=== PATIENT | male | born 1990 | race Caucasian/White ===

== ENCOUNTER 2023-10-20 15:02 | Emergency (ER) | payer OTHER ==
[2023-10-20 15:30] VITALS: BP 132/82; PULSE 78; RESP 18; TEMP 98.4; BMI 31.0
[2023-10-20] MEDS ORDERED: FLUORESCEIN NA 1 EA STRIP ONE (16:43)
[2023-10-20] MEDS ORDERED: TETRACAINE 0.5% OPHTH SOLN 2 ML BOTTLE ONE (16:43)
[2023-10-20] MEDS: FLUORESCEIN NA 1 EA STRIP OS ONE (16:49)
[2023-10-20] MEDS: TETRACAINE 0.5% HCL 0.6ML DROPPER.BOTTLE OS ONE (16:49)
== END 2023-10-20 17:25 | disposition home or self-care (01) ==
LOC: JER 15:02
DX: H43.392 Other vitreous opacities, left eye (principal); H57.89 Other specified disorders of eye and adnexa
CPT/HCPCS: 99283-25